=== PATIENT | male | born 1985 | race Hispanic/Latino ===

== ENCOUNTER 2021-05-10 13:34 | Emergency (ER) | payer OTHER ==
[~2021-05-10] VITALS: Ht 165.1 cm; Wt 86.2 kg
[2021-05-10 14:45] LABS: STREPTOCOCCUS GRP A ANTIGEN NEGATIVE (NEGATIVE)
== END 2021-05-10 16:14 | disposition home or self-care (01) ==
LOC: ER 13:41
DX: R05.9 Cough, unspecified (principal); B34.9 Viral infection, unspecified; Z20.822 Contact with and (suspected) exposure to COVID-19
CPT/HCPCS: 83518; 87070; 99283; U0002